=== PATIENT | male | born 1965 | race Caucasian/White ===

== ENCOUNTER 2018-02-04 07:48 | Outpatient (CLI) | payer OTHER ==
--- NOTE | 2018-02-04 10:16 | CT ---
CT ABDOMEN AND PELVIS WITH AND WITHOUT IV CONTRAST: HISTORY: Microscopic hematuria. FINDINGS: The lung bases are clear. The liver, spleen, pancreas, and adrenal glands are normal. No calcified gallstones are seen. No free air, free fluid, or lymphadenopathy is seen in the abdomen or pelvis. No calculi are noted in the kidneys, ureters, or the urinary bladder. No hydroureteral nephrosis is seen. No renal mass is noted on either side. There is normal contrast enhancement of the renal pare nchymal and normal excretion into the pelvicalyceal systems and ureters. The small bowel loops are not abnormally dilated. A normal-appearing appendix is seen. There are mi ld degenerative changes in the spine. There are vascular calcifications without evidence of aneurysm al dilatation of the abdominal aorta. IMPRESSION: No CT evidence of urinary tract calculi/obstruction or renal mass. POS: SID
[2018-02-04] MEDS ORDERED: ISOVUE-370 76%-LOCM 1 ML ONE (13:20)
== END 2018-02-04 07:49 | disposition home or self-care (01) ==
LOC: BICCT 07:48
PROVIDERS: ATTEND Urology
DX: R31.29 Other microscopic hematuria (principal)
CPT/HCPCS: 74178

== ENCOUNTER 2019-12-13 10:39 | Emergency (ER) | payer OTHER ==
[~2019-12-13 10:39] MED LIST: Iopamidol-370 76% 500 ML 1 ML ONE
[2019-12-13] MEDS ORDERED: Albuterol 200 PUFF (6.7GM INHALER) ONE ×2 (11:39→12:08)
[2019-12-13] MEDS ORDERED: Dexamethasone 10 MG/ML VIAL ONE (11:39)
[2019-12-13] MEDS ORDERED: Dexamethasone 4 MG TAB ONE (11:40)
[2019-12-13] MEDS ORDERED: Aspirin Chewable 81 MG TAB ONE (11:45)
--- NOTE | 2019-12-13 11:55 | RAD ---
EXAM: CHEST ONE VIEW HISTORY: Dyspnea. Difficulty breathing which is getting worse. Positive Covid. COMPARISON: 12/10/2019. FINDINGS: The cardiac silhouette and pulmonary vasculature are within normal limits. There has been interval de velopment of faint patchy and interstitial opacities at each lung base and to a lesser extent midlung zones most compatible with viral pneumonitis processes Covid). No pleural fluid is seen. No o ther interval change IMPRESSION: Parenchymal airspace opacities at each lung base and to a lesser extent in the midlung zones most com patible with viral pneumonitis (Covid 19).
[2019-12-13 12:00] LABS: Hemoglobin 12.1 g/dL (14.0-18.0); Mean Corpuscular HGB CONC 35.4 g/dL (32.0-36.0); Mean Corpuscular Hemoglobin 34.9 pg (27.0-31.0); Mean Corpuscular Volume 98.7 fL (78.0-98.0); Platelet Count 315 thou/uL (130-400); RBC Distribution Width 12.7 % (11.5-14.5); Red Blood Cell (RBC) Count 3.46 mill/uL (4.70-6.10); White Blood Cell (WBC) Count 4.9 thou/uL (4.8-10.8)
[2019-12-13 12:05] LABS: ALT (SGPT) 51 U/L (8-55); AST (SGOT) 76 U/L (5-34); Albumin 3.3 g/dL (3.5-5.0); Alkaline Phosphatase 95 U/L (40-110); Anion Gap 17 mmol/L (10-20); BUN (Urea Nitrogen) 15 mg/dL (8.4-25.7); Calc. Creatinine Clearance 0 mL/min (70-130); Calcium 8.6 mg/dL (7.8-10.44); Carbon Dioxide 24 mmol/L (22-29); Chloride 99 mmol/L (98-107); Estimated GFR-MDRD 67; Globulin 3.7 g/dL (2.4-3.5); Glucose 101 mg/dL (70-105); Potassium 3.4 mmol/L (3.5-5.1); Sodium 137 mmol/L (136-145)
[2019-12-13 12:27] LABS: Band 5 % (5-11); Eosinophils 6 % (0-10); Lymphocytes 16 % (21-51); MDiff Complete? YES; Monocytes 6 % (0-10); Neutrophil 63 % (42-75); Ovalocytes SLIGHT = 2-5 cells (100X) (0-1/hpf); Platelet Morphology Comment Appears Adequate; Reactive Lymphocytes 4 % (0-10)
[2019-12-13] MEDS ORDERED: PROPOFOL 0 ML ONE (12:41)
[2019-12-13] MEDS ORDERED: cefTRIAXone\\ROCEPHIN 2 GM VIAL ONE (12:41)
[2019-12-13] MEDS ORDERED: Doxycycline 100 MG CAP PO SCH (13:00)
--- NOTE | 2019-12-13 14:45 | CT ---
CT ANGIOGRAM THORAX WITH IV CONTRAST AND 3-D RECONSTRUCTIONS CLINICAL INDICATION: Dyspnea. Diagnosed with Covid 19. COMPARISON: None FINDINGS: Pulmonary arteries: No filling defects are seen in the pulmonary arteries to suggest a pulmonary embo daniel. Aorta: The aorta is normal in caliber without evidence of an aortic dissection. Lungs: There are increase in predominantly peripherally located groundglass densities seen throughout the lungs bilaterally in a pattern compatible with viral pneumonitis (Covid 19). No pleural effusion is seen. Mediastinum: There is increased number and size of mediastinal lymph nodes. Largest lymph node in sub carinal location measures 1.3 cm in short axis dimension. Minimal increased soft tissue density is also seen in each hilar region. Findings are likely related to reactive lymphadenopathy. Thyroid gland: Not imaged on this exam. Osseous structures: No suspicious lytic or sclerotic osseous lesion. Chest wall: No abnormality visualized. Upper abdomen: Within normal limits for phase of imaging. IMPRESSION: 1. Evidence of viral pneumonitis (Covid 19). 2. Mediastinal and hilar lymphadenopathy likely reactive in origin. 3. No CT evidence of a pulmonary embolus.
== END 2019-12-13 20:52 | disposition home or self-care (01) ==
LOC: ERS 10:39
DX: U07.1 COVID-19 (principal); R09.02 Hypoxemia; M10.9 Gout, unspecified; E78.5 Hyperlipidemia, unspecified; E78.00 Pure hypercholesterolemia, unspecified; I10 Essential (primary) hypertension; Z79.899 Other long term (current) drug therapy
CPT/HCPCS: 36415; 71045; 71275; 80053; 83605; 83880; 84484; 85025; 85379; 87040; 93005; 94664; 96365; J0696; J1100; J2704; J8540

== ENCOUNTER 2020-01-11 13:19 | Outpatient (CLI) | payer OTHER ==
--- NOTE | 2020-01-11 13:32 | RAD ---
EXAM: Chest PA and lateral: HISTORY: Positive COVID one month ago COMPARISON: 12/13/2019 FINDINGS: Heart: Normal cardiac silhouette Aorta: Unremarkable Pulmonary vessels: Normal Costophrenic angles: Costophrenic angles are clear. Lungs: No consolidation or masses. Lung parenchymal changes. Pneumothorax: No pneumothorax. Bilateral apical pleural thickening. Osseous structures: No osseous abnormalities IMPRESSION: No acute cardiopulmonary process.
== END 2020-01-11 13:20 | disposition home or self-care (01) ==
LOC: BICRAD 13:19
PROVIDERS: ATTEND Physician Assistant
DX: J12.89 Other viral pneumonia (principal)
CPT/HCPCS: 71046